=== PATIENT | male | born 1990 | race Caucasian/White ===

== ENCOUNTER 2024-12-13 17:19 | Emergency (ER) | payer OTHER, SELFPAY ==
[2024-12-13 17:22] VITALS: BP 143/95; PULSE 115; TEMP 36.9; O2SAT 99; BMI 36.6
--- OUTSIDE RECORDS SUMMARY | 2024-12-13 17:30 | XMS_ITS | Clinical Summary ---
Author Organization [facility] Address [address] [place] [id number] Care Team Providers Care Grounds Maintenance Worker Name Role Phone SaltyabimaelDaria hong CNP Primary Care Provider + Allergies No known active allergies Medications buprenorphine-n alOXone (SUBOXONE) 8-[address] FILM UNDER THE TONGUE TWICE DAILY AND ALLOW TO DISSOLVE 3 Active diazePAM (VALIUM) 10 MG tablet TAKE 2 TABLETS BY MOUTH 1 HOUR BEFORE APPOINTMENT.BRIN Paige 3RD TABLET TO APPOINTMENT 3 Active gabapentin (NEURONTIN) 800 MG tablet 3 Active hydrOXYzine (ATARAX) 50 MG tablet Take 1 (one) tablet (50 mg total) by mouth every 6 (six) hours as needed for anxiety . 3 Active ibuprofen (ADVIL,MOTRIN) 800 MG tablet 3 Active omeprazole (PRILOSEC) 20 MG capsule take 1 capsule by mouth every day 30 minutes before breakfast 3 Active sildenafiL (VIAGRA) 100 MG tablet Take 1 (one) tablet (100 mg total) by mouth 30 MINUTES PRIOR TO SEXUAL ACTIVITY . 3 Active sucralfate (CARAFATE) 1 gram tablet TAKE 1 TABLET(1 GRAM) BY MOUTH FOUR TIMES DAILY BEFORE MEALS 360 tablet 3 Active Additional Information Patient not taking.Reported on 04/11/2024 tiZANidine (ZANAFLEX) 4 MG tablet Take 1 (one) tablet (4 mg total) by mouth 3 (three) times a day as needed for muscle spasms . 30 tablet 4 Active lidocaine (LIDODERM) 5 % patch Place 1 (one) patch on the skin daily Remove & Discard patch within 12 hours or as directed by . 30 patch 04/11/20 25 Active Active Problems Problem Noted Date Diagnosed Date Epigastric pain 04/18/2023 Coffee ground emesis 04/18/2023 Social History Tobacco Use Types Packs/Day Years Used Date Smoking Tobacco: Every Day Cigarettes Passive Smoke Exposure: Current Smokeless Tobacco: Current Tobacco Cessation:Ready to Q uit: Not Asked; Counseling Given: Not Answered Comments:I pack a day Alcohol Use Standard Drinks/Week Comments Not Currently 0 (1 standard drink = 0.6 oz pur e alcohol) Sex and Gender Information Value Date Recorded Sex Assigned at Not on file Legal Sex Male 2:41 PM EDT Gender Identity Not on file Sexual Orientation Not on file Last Filed Vital Signs Vital Sign Reading Time Taken Comments Blood Pressure 134/87 04/11/2024 4:41 PM EST Pulse 83 04/11/2024 4:41 PM EST Temperature 36.9 C (98.4 F) 04/11/2024 4:41 PM EST Respiratory Rate 17 04/11/2024 4:41 PM EST Oxygen Saturation 95% 04/11/2024 4:41 PM EST Inhaled Oxygen Concentration - - Weight 123.2 kg (271 lb 9 oz) 04/11/2024 4:41 PM EST Height 182.9 cm (6') 04/11/2024 4:41 PM EST Body Mass Index 36.83 04/11/2024 4:41 PM EST Plan of Treatment Health Maintenance Due Date Last Done Comments Tetanus: Every 10yrs 1991 Depression Screening/Follow-Up (PHQ-2/9) 2003 HIV Screening 11/26/2006 Hepatitis C Screening 11/26/2009 Pneumococcal Vaccine: Ped or At-Risk (1 of 2 - PCV) Wellness Visit 09/20/2023 09/19/2022 COVID-19 Vaccine ( season) 2024 Influenza Vaccine (#1) 2025 Insurance [employer] PLUS Care Teams Grounds Maintenance Worker Relationship Specialty Start Date End Date Daria Barreto, HENRY [address] [address] PCP - General Nurse Practitioner 03/31/23
--- OUTSIDE RECORDS SUMMARY | 2024-12-13 17:30 | XMS_ITS | Encounter Summary ---
Author Organization [facility] Address [address] [place] [address] Care Team Providers Care Weight Loss Centre Manager Name Role Phone Daria Barreto CNP Primary Care Provider + Encounter Details Date Type Department Care Team (Late st Contact Info) Description 04/18/2023 Prep for Surgery [facility] [address] [place] [id number] Deana Randall MA Epigastric pain (Primary Dx); Coffee ground emesis Social History Tobacco Use Types Packs/Day Years Used Date Smoking Tobacco: Every Day Cigarettes Passive Smoke Exposure: Current Smokeless Tobacco: Current Comments:I pack a day Sex and Gender Information Value Date Recorded Sex Assigned at Not on file Legal Sex Male 2:41 PM EDT Gender Identity Not on file Sexual Orientation Not on file documented as of this encounter Plan of Treatment Not on file documented as of this encounter Visit Diagnoses Diagnosis Epigastric pain- Primary Abdominal pain, epigastric Coffee ground emesis Hematemesis documented in this encounter Care Teams Weight Loss Centre Manager Relationship Specialty Start Date End Date Daria Barreto CNP [address] [place] [id number] PCP - General Nurse Practitioner 03/31/23 documented as of this encounter
--- NOTE | 2024-12-13 17:38 | US_ITS ---
The [address] [address] Patient Name: JAD FALCON MRN: [id number] date: 1990 Sex: M Assigned Patient Location: ED.MAIN Current Patient Location: ED.MAIN Accession/Order Number: [id number] Exam Date: 12/13/2024 19:01 Report Date: 12/13/2024 19:07 At the request of: SHARRI BRUNO MD Procedure: US scrotum doppler Scrotal ultrasound HISTORY: Left-sided scrotal pain. COMPARISON: None RIGHT testicle measures 5.1 x 2.2 x 2.9 cm. LEFT testicle measures 4.6 x 2.2 x 2.8 cm. No testicular mass or microcalcifications identified. Normal color flow of both testicles identified. RIGHT epididymal head measures 0.7 cm. LEFT epididymal head measures 0.6 cm. . No hydroceles identified. No scrotal wall abnormality identified. US/US scrotum doppler IMPRESSION: Normal testicles. No torsion. Unremarkable right and left epididymis. Impression dictated by: Tre Ellington M.D. 12/13/2024 7:07 PM Dictation Location[facility] Electron[facility] authenticated by: [id number] Y Date: 12/13/2024 19:07
--- NOTE | 2024-12-13 17:39 | PC.NURSE ---
no swelling to testicles pt reports pain to left side that radiates into groin and pain increases with urination.
[2024-12-13 17:55] LABS: Glucose Urine UA NEGATIVE (NEGATIVE)
[2024-12-13 18:01] LABS: Cast Seen? NONE SEEN #/LPF (NONE SEEN); Crystals Seen? None Seen #/HPF (None Seen); Urine Culture Indicated NO
--- NOTE | 2024-12-13 18:12 | ED_ITS ---
HPI HPI - General Adult General Chief complaint: Urogenital-Male Stated complaint: GROWING PAIN Time Seen by Provider: 12/13/24 17:32 Source: patient Mode of arrival: walk-in Related Data Allergies Allergy/AdvReac Type Severity Reaction Status Date / Time No Known Drug Allergies Allergy Verified 12/13/24 17:25 PFSH PFSH Social History Little interest or pleasure in doing things: not at all Feeling down, depressed, or hopeless: not at all Exam Constitutional Vital Signs, click to edit/add: Last Vital Signs Temp 98.4 F 12/13/24 17:22 Pulse 115 H 12/13/24 17:22 Resp 18 12/13/24 17:22 BP 143/95 H 12/13/24 17:22 Pulse Ox 99 12/13/24 17:22 O2 Del Method Room Air 12/13/24 17:22 Course Vital Signs Vital signs: Vital Signs Temperature 98.4 F 12/13/24 17:22 Pulse Rate 115 H 12/13/24 17:22 Respiratory Rate 18 12/13/24 17:22 Blood Pressure 143/95 H 12/13/24 17:22 Pulse Oximetry 99 12/13/24 17:22 Oxygen Delivery Method Room Air 12/13/24 17:22 Temperature 98.4 F 12/13/24 17:22 Pulse Rate 115 H 12/13/24 17:22 Respiratory Rate 18 12/13/24 17:22 Blood Pressure 143/95 H 12/13/24 17:22 Pulse Oximetry 99 12/13/24 17:22 Oxygen Delivery Method Room Air 12/13/24 17:22 Medical Decision Making MDM Narrative Medical decision making narrative: Ultrasound is pending and the patient is signed out to Dr. Eden at change of shift. Differential Diagnosis Differential Diagnosis: Torsion, epididymitis, varicocele, hydrocele Lab Data Lab results reviewed: Yes I reviewed the patient's lab results Labs: Lab Results 12/13/24 Range/Units 17:34 Urine Color Lt. yellow (YELLOW) Urine Clarity Clear (CLEAR) Urine pH 6.5 (5.0-9.0) Ur Specific [place] 1.010 (1.005-1.025) Urine Protein Negative (NEG/TRACE) mg/dL Urine Glucose (UA) Negative (NEGATIVE) mg/dL Urine Ketones Negative (NEGATIVE) mg/dL Urine Occult Blood Negative (NEGATIVE) Urine Nitrite Negative (NEGATIVE) Urine Bilirubin Negative (NEGATIVE) Urine Urobilinogen 0.2 (0.2-1.0) EU/dL Ur Leukocyte Esterase Negative (NEGATIVE) Urine RBC None seen (0-2) #/HPF Urine WBC None seen (NONE SEEN) #/HPF Ur Squamous Epith Cells None seen (NONE/RARE) #/LPF Urine Crystals None seen (None Seen) #/HPF Urine Bacteria None seen (NONE SEEN) #/HPF Urine Casts None seen (NONE SEEN) #/LPF Urine Mucus None seen (NONE SEEN) Ur Culture Indicated? No Discharge Plan Discharge Patient Disposition: Still a Patient
[2024-12-13 18:58] VITALS: BP 120/82; PULSE 85; O2SAT 97
[2024-12-17 04:11] LABS: Neisseria gonorrhoeae, NAA Negative (Negative)
== END 2024-12-13 20:05 | disposition home or self-care (01) ==
PROVIDERS: Emergency Medicine; Emergency Provider Internal Medicine
DX: N50.812 Left testicular pain (principal)
CPT/HCPCS: 76870; 81001; 87491; 87591; 93976; 99284